=== PATIENT | male | born 1980 | race Caucasian/White ===

== ENCOUNTER → 2019-12-19 | Outpatient (CLI) | payer OTHER | LOC: HYPER 12:26 | PROVIDERS: ATTEND Emergency Medicine | DX: T81.31XA Disruption of external operation (surgical) wound, not elsewhere classified, initial encounter (principal); L05.91 Pilonidal cyst without abscess; L40.9 Psoriasis, unspecified; L72.0 Epidermal cyst; J45.909 Unspecified asthma, uncomplicated; Y92.238 Other place in hospital as the place of occurrence of the external cause; Y83.8 Other surgical procedures as the cause of abnormal reaction of the patient, or of later complication, without mention of misadventure at the time of the procedure ==

== ENCOUNTER → 2019-12-27 | Outpatient (CLI) | payer OTHER | LOC: HYPER 10:59 | PROVIDERS: ATTEND Emergency Medicine | DX: T81.31XD Disruption of external operation (surgical) wound, not elsewhere classified, subsequent encounter (principal); L05.91 Pilonidal cyst without abscess; L40.9 Psoriasis, unspecified; L72.0 Epidermal cyst; J45.909 Unspecified asthma, uncomplicated; Y83.8 Other surgical procedures as the cause of abnormal reaction of the patient, or of later complication, without mention of misadventure at the time of the procedure ==

== ENCOUNTER → 2020-01-10 | Outpatient (CLI) | payer OTHER | LOC: HYPER 10:34 | PROVIDERS: ATTEND Emergency Medicine | DX: T81.31XD Disruption of external operation (surgical) wound, not elsewhere classified, subsequent encounter (principal); L05.91 Pilonidal cyst without abscess; L40.9 Psoriasis, unspecified; L72.0 Epidermal cyst; J45.909 Unspecified asthma, uncomplicated; Y83.8 Other surgical procedures as the cause of abnormal reaction of the patient, or of later complication, without mention of misadventure at the time of the procedure ==

== ENCOUNTER → 2020-01-24 | Outpatient (CLI) | payer OTHER | LOC: HYPER 13:10 | PROVIDERS: ATTEND Emergency Medicine | DX: T81.31XD Disruption of external operation (surgical) wound, not elsewhere classified, subsequent encounter (principal); L05.91 Pilonidal cyst without abscess; L40.9 Psoriasis, unspecified; L72.0 Epidermal cyst; J45.909 Unspecified asthma, uncomplicated; Y83.8 Other surgical procedures as the cause of abnormal reaction of the patient, or of later complication, without mention of misadventure at the time of the procedure ==